=== PATIENT | male | born 1985 | race Caucasian/White ===

== ENCOUNTER 2017-12-06 09:47 | Emergency (ER) | payer OTHER ==
[~2017-12-06] VITALS: Ht 182.9 cm; Wt 115.0 kg
[2017-12-06 10:21] VITALS: BP 144/88
[2017-12-06] MEDS ORDERED: PLEASE ENTER ALLERGIES MC SCH (10:30)
[2017-12-06] MEDS ORDERED: PLEASE ENTER HEIGHT AND WEIGHT MC SCH (10:30)
[2017-12-06] MEDS ORDERED: LIDOCAINE 2%, 20ML SQ ONE (10:30)
== END 2017-12-06 10:34 | disposition home or self-care (01) ==
LOC: ED 10:25
DX: L03.012 Cellulitis of left finger (principal); Z87.891 Personal history of nicotine dependence
CPT/HCPCS: 10060; 99283

== ENCOUNTER 2017-12-09 13:00 | Emergency (ER) | payer OTHER ==
[~2017-12-09] VITALS: Ht 180.3 cm; Wt 114.5 kg
[2017-12-09 13:02] VITALS: BP 146/89
[2017-12-09] MEDS ORDERED: BACITRACIN ZINC OINT 500U/GM, 0.9 GM ONE (13:19)
== END 2017-12-09 14:25 | disposition home or self-care (01) ==
LOC: ED 13:38
DX: Z48.01 Encounter for change or removal of surgical wound dressing (principal)
CPT/HCPCS: 99283